=== PATIENT | female | born 1960 | race Caucasian/White ===

== ENCOUNTER 2020-11-17 12:05 | Observation (INO) ==
[2020-11-17] MEDS ORDERED: cloNIDine HCL 0.1 MG TABLET PO ONE ×2 (12:40→13:52)
[2020-11-17] MEDS ORDERED: Ondansetron 4 MG/2 ML VIAL IVP ONE (12:40)
[2020-11-17] MEDS ORDERED: Morphine Sulfate 2 MG/ML SYRINGE IVP ONE ×2 (12:40→13:44)
[2020-11-17] MEDS ORDERED: 0.9 % Sodium Chloride 500 ML IVC ONE (12:40)
[2020-11-17 13:12] LABS: Basophils # 0.1 K/mcL (0.0-0.2); Basophils % 0.7 %; Eosinophils # 0.3 K/mcL (0.0-0.6); Eosinophils % 3.7 %; Hematocrit 43.7 % (35.3-44.9); Immature Granulocytes % 0.6 % (0-4); Lymphocytes # 2.3 K/mcL (0.6-4.6); Lymphocytes % 33.4 %; Mean Corpuscular Hemoglobin 30.4 pg (28.0-33.3); Mean Corpuscular Volume 94.8 fL (83.0-100.0); Mean Platelet Volume 10.4 fL (9.4-12.4); Monocytes # 0.5 K/mcL (0.0-1.3); Monocytes % 7.2 %; Neutrophils # 3.7 K/mcL (1.6-8.9); Platelet Count 219 K/mcL (140-400); Red Blood Count 4.61 M/mcL (3.82-4.97); Red Cell Distribution Width 13.8 % (11.5-14.5); Segmented Neutrophils % 54.4 %; White Blood Count 6.8 K/mcL (4.3-11.1)
[2020-11-17 13:31] LABS: BUN/Creatinine Ratio 17 (6-26); Blood Urea Nitrogen 13 mg/dL (8-23); Calcium 9.3 mg/dL (8.6-10.3); Carbon Dioxide 27 mEq/L (23-29); Chloride 106 mEq/L (98-107); Glucose 134 mg/dL (70-105); Magnesium 1.9 mg/dL (1.6-2.6); Osmolality,Calculated 286 (280-300); Potassium 4.2 mEq/L (3.5-5.1); Sodium 137 mEq/L (136-145); eGFR For African Americans > 60 (> 60); eGFR For Non-African Americans > 60 (> 60)
[2020-11-17 13:35] LABS: Troponin I < 0.03 ng/mL (< 0.04)
[2020-11-17] MEDS ORDERED: Ketorolac 30 MG/ML VIAL IVP ONE (13:44)
[2020-11-17] MEDS ORDERED: Metoclopramide 10 MG/2 ML VIAL IVP ONE (13:44)
[2020-11-17] MEDS ORDERED: Acetaminophen 325 MG TABLET PO PRN ×2 (16:52→17:58)
[2020-11-17] MEDS ORDERED: Ondansetron ODT 4 MG TAB.RAPDIS SL PRN ×2 (16:52→17:58)
[2020-11-17] MEDS ORDERED: Mag Hydrox/Al Hydrox/Simeth 30 ML UDC PO PRN ×2 (16:52→17:58)
[2020-11-17] MEDS ORDERED: Naloxone 0.4 MG/ML INJ IVP PRN ×2 (16:52→17:58)
[2020-11-17] MEDS ORDERED: Ondansetron 4 MG/2 ML VIAL IVP PRN ×2 (16:52→17:58)
[2020-11-17] MEDS ORDERED: Melatonin 3 MG TABLET PO PRN ×2 (16:52→17:58)
[2020-11-17] MEDS ORDERED: MOM Conc 10 ML UD.LIQ PO PRN ×2 (16:52→17:58)
[2020-11-17] MEDS ORDERED: *HR* HYDROcodone/Acet 5/325 mg TABLET PO PRN ×4 (16:59→17:58)
[2020-11-17] MEDS ORDERED: Ketorolac 30 MG/ML VIAL IVP PRN ×2 (17:00→17:58)
[2020-11-17] MEDS ORDERED: 0.9 % Sodium Chloride 1,000 ML IVC SCH (17:00)
[2020-11-17] MEDS ORDERED: lisinopriL 5 MG TABLET PO SCH (17:00)
[2020-11-17] MEDS ORDERED: hydrALAZINE 10 MG TABLET PO PRN ×2 (17:02→17:58)
[2020-11-17] MEDS ORDERED: Perflutren Lipid Microsphere 1.3 ML in 0.9 % Sodium Chloride 8.7 ML IVP PRN ×2 (17:37→17:58)
[2020-11-17] MEDS: 0.9 % Sodium Chloride 1,000 ML IVC SCH (18:33)
[2020-11-17 19:09] VITALS: RESP 16
[2020-11-17] MEDS ORDERED: Gabapentin 300 MG CAPSULE PO SCH (21:00)
[2020-11-17] MEDS: clonazePAM 0.5 MG TABLET PO SCH (21:16)
[2020-11-17] MEDS: Gabapentin 300 MG CAPSULE PO SCH (21:16)
[2020-11-18 05:00] LABS: Hematocrit 41.3 % (35.3-44.9); Hemoglobin 13.1 g/dL (11.5-15.4); Mean Corpuscular HGB Conc 31.7 g/dL (31.6-35.5); Mean Corpuscular Hemoglobin 30.5 pg (28.0-33.3); Platelet Count 178 K/mcL (140-400); White Blood Count 7.6 K/mcL (4.3-11.1)
[2020-11-18 05:02] LABS: Bilirubin,Urine Small (Negative); Blood,Urine Negative (Negative); Clarity,Urine Slightly Cloudy (Clear); Glucose,Urine (UA) Normal (Normal); Ketones,Urine Negative (Negative); Leukocyte Esterase,Urine Negative (Negative); Nitrite,Urine Negative (Negative); PH,Urine 5.5 pH Units (5.0-8.0); Protein,Urine 30 mg/dL (Neg-Trace); Specific Gravity,Urine >= 1.030 (1.010-1.025); Urobilinogen,Urine Normal (Normal)
[2020-11-18 05:11] LABS: Color,Urine Yellow (Yellow)
[2020-11-18 05:12] LABS: Amorphous Sediment,Urine Few per hpf (None-Few); Squamous Epithelial Cell,Urine Few per hpf (None-Few)
[2020-11-18 05:24] LABS: Alanine Aminotransferase 16 Units/L (7-52); Albumin 3.4 g/dL (3.5-5.7); Albumin/Globulin Ratio 1.1 (1.1-2.2); Alkaline Phosphatase 52 Units/L (34-104); Aspartate Amino Transferase 16 Units/L (13-39); BUN/Creatinine Ratio 18 (6-26); Bilirubin,Total 0.7 mg/dL (0.3-1.0); Blood Urea Nitrogen 15 mg/dL (8-23); Calcium 8.5 mg/dL (8.6-10.3); Carbon Dioxide 25 mEq/L (23-29); Chloride 108 mEq/L (98-107); Glucose 132 mg/dL (70-105); Osmolality,Calculated 293 (280-300); Phosphorous 3.5 mg/dL (2.7-4.5); Potassium 4.3 mEq/L (3.5-5.1); Sodium 140 mEq/L (136-145); Total Protein 6.4 g/dL (6.4-8.9); eGFR For African Americans > 60 (> 60); eGFR For Non-African Americans > 60 (> 60)
[2020-11-18] MEDS ORDERED: *HR* Enoxaparin 40 MG/0.4 ML SYRINGE SQ SCH (06:00)
[2020-11-18] MEDS: Gabapentin 300 MG CAPSULE PO SCH ×2 (08:17→15:14)
[2020-11-18] MEDS: clonazePAM 0.5 MG TABLET PO SCH (08:17)
[2020-11-18] MEDS: 0.9 % Sodium Chloride 1,000 ML IVC SCH (08:22)
[2020-11-18] MEDS ORDERED: lisinopriL 5 MG TABLET PO SCH (09:00)
[2020-11-18] MEDS ORDERED: NON-FORMULARY MEDICATION 1 EACH EACH (Meloxicam [Mobic] 15 MG) PO SCH (09:00)
[2020-11-18 10:03] LABS: Estimated Average Glucose 163 mg/dl; Hemoglobin A1C 7.3 %
[2020-11-18 11:26] VITALS: BP 127/81; PULSE 60; TEMP 97.8; O2SAT 96
== END 2020-11-18 15:42 | disposition home or self-care (01) ==
LOC: EMEROOGRE 12:05 → INPGRE 12:05
PROVIDERS: ADMIT Family Medicine; ATTEND Family Medicine